=== PATIENT | male | born 1960 | race Caucasian/White ===

== ENCOUNTER 2024-10-02 14:14 | Inpatient (IN) | payer BC, SELFPAY ==
[~2024-10-02] VITALS: Ht 165.1 cm; Wt 52.2 kg
[2024-10-02 15:05] LABS: PLATELET COUNT, AUTOMATED 278 10^3/uL (150-450)
[2024-10-02 15:22] LABS: ETHYL ALCOHOL (ETHANOL) < 0.003 % (0.000-0.010)
[2024-10-02 15:23] LABS: SALICYLATE LEVEL < 3.0 MG/DL (<30)
[2024-10-02 15:24] LABS: ALT/SGPT 255 U/L (7.0-40); AST/SGOT 388 U/L (<34); CALCIUM LEVEL 9.3 MG/DL (8.3-10.6); CARBON DIOXIDE LEVEL 24 MMOL/L (20-31); CHLORIDE LEVEL 103 MMOL/L (98-107); CREATININE FOR GFR 0.80 MG/DL (0.70-1.30); GLOMERULAR FILTRATION RATE > 90.0 (>49); POTASSIUM SERUM 3.8 MMOL/L (3.5-5.1); SODIUM LEVEL 141 MMOL/L (136-145)
[2024-10-02 15:48] LABS: AMPHETAMINES LEVEL URINE NEGATIVE (NEGATIVE); BARBITURATES URINE NEGATIVE (NEGATIVE); BENZODIAZEPINES URINE NEGATIVE (NEGATIVE); COCAINE METABOLITE URINE NEGATIVE (NEGATIVE); METHADONE URINE NEGATIVE (NEGATIVE); OPIATES URINE NEGATIVE (NEGATIVE); PHENCYCLIDINE URINE NEGATIVE (NEGATIVE)
[2024-10-02 15:50] LABS: CANNABINOIDS URINE POSITIVE (NEGATIVE)
[2024-10-02] MEDS ORDERED: HOME MED LIST COMPLETE! XX SCH (17:00)
[2024-10-02] MEDS ORDERED: traZODone 50 MG TAB PO PRN (18:50)
[2024-10-02] MEDS ORDERED: ACETAMINOPHEN 325 MG TAB PO PRN (18:50)
[2024-10-02] MEDS ORDERED: MOM 30 ML SUSPENSION UDC PO PRN (18:50)
[2024-10-02] MEDS ORDERED: IBUPROFEN 400 MG TAB PO PRN (18:50)
[2024-10-02] MEDS ORDERED: MAALOX 30 ML SUSP *UDC PO PRN (18:50)
[2024-10-03 00:49] LABS: CPK CREATINE PHOSPHOKINASE 6321 U/L (46-171)
[2024-10-03] MEDS: LR 1,000 ML IV STA (06:28)
[2024-10-03] MEDS: LORazepam 1 MG TAB PO ONE (08:35)
[2024-10-03] MEDS: LR 1,000 ML IV ONE (09:03)
[2024-10-04] MEDS ORDERED: ACETAMINOPHEN 325 MG TAB PO PRN (14:00)
[2024-10-04] MEDS ORDERED: MOM 30 ML SUSPENSION UDC PO PRN (14:00)
[2024-10-04] MEDS ORDERED: MAALOX 30 ML SUSP *UDC PO PRN (14:00)
[2024-10-04] MEDS ORDERED: IBUPROFEN 400 MG TAB PO PRN (14:00)
[2024-10-04 15:52] VITALS: BP 130/70; TEMP 96.6; O2SAT 100
[2024-10-05 06:36] VITALS: BP 122/77; TEMP 97.7; O2SAT 100
[2024-10-05 14:48] VITALS: BP 133/84; TEMP 98.1; O2SAT 97
[2024-10-05] MEDS: traZODone 50 MG TAB PO PRN (20:37)
[2024-10-06 06:22] VITALS: BP 112/84; TEMP 97.3; O2SAT 99
[2024-10-06 08:19] LABS: ALT/SGPT 104 U/L (7.0-40); AST/SGOT 44 U/L (<34); CHOLESTEROL LEVEL 192 MG/DL (<200); CHOLESTEROL RISK RATIO 3.51 (<5); LDL CHOLESTEROL 101.6 MG/DL (<100); NON-HDL-C 137.4 MG/DL; TRIGLYCERIDES LEVEL 179 MG/DL (<150)
[2024-10-06 13:56] LABS: HEPATITIS C VIRUS ABY INDEX 0.04 INDEX (<0.8)
[2024-10-06 14:03] LABS: CPK CREATINE PHOSPHOKINASE 160 U/L (46-171)
[2024-10-06 17:27] VITALS: BP 148/82; TEMP 98.3
[2024-10-06] MEDS: OLANZapine 5 MG TAB PO SCH (20:34)
[2024-10-07] MEDS ORDERED: OLAN1TAB16 PO (12:17)
[2024-10-07 15:15] VITALS: BP 126/68; TEMP 97.7; O2SAT 100
[2024-10-08 06:32] VITALS: BP 125/81; TEMP 97.6; O2SAT 99
== END 2024-10-08 14:01 | disposition home or self-care (01) | DRG 753 ==
LOC: M ED 14:14 → UNDOADMIN 18:46 → M ED INP 18:46 → M PSY 10-04 14:42
PROVIDERS: ADMIT General Practice; ATTEND General Practice
DX: F31.11 Bipolar disorder, current episode manic without psychotic features, mild (principal)